=== PATIENT | female | born 1980 | race Caucasian/White ===

== ENCOUNTER 2020-06-27 09:02 | Outpatient (REF) | payer OTHER, SELFPAY ==
[2020-06-27 09:57] LABS: MANUAL DIFF FLAG NO
[2020-06-27 10:20] LABS: Basophils Absolute Auto 0.1 X10*3/uL (0.0-0.2); Basophils Percent Auto 1.1 % (0-2); Eosinophils Absolute Auto 0.2 X10*3/uL (0.0-0.4); Eosinophils Percent Auto 2.4 % (0-4); Hematocrit 39.2 % (37-47); Hemoglobin 12.8 g/dl (12.0-16.0); Imm Gran Abs Auto 0.01 X10*3/uL (0.00-0.03); Imm Gran Pct Auto 0.2 % (0.0-0.4); Lymphocytes Absolute Auto 3.3 X10*3/uL (1.2-4.9); Lymphocytes Percent Auto 53.7 % (20-40); Mean Corpuscular HGB Conc 32.7 g/dl (31.0-35.0); Mean Corpuscular Hemoglobin 29.5 pg (27.0-33.0); Mean Corpuscular Volume 90.3 fL (80-98); Mean Platelet Volume 10.7 fL (9.4-12.3); Monocytes Absolute Auto 0.4 X10*3/uL (0.1-1.2); Neutrophils Absolute Auto 2.3 X10*3/uL (2.0-8.3); Neutrophils Percent Auto 36.6 % (45-73); Platelet Count 269 X10*3/uL (160-400); Red Blood Count 4.34 X10*6/uL (4.20-5.50); Red Cell Distribution Width 12.5 % (11.0-16.0); White Blood Count 6.2 X10*3/uL (4.8-10.8)
[2020-06-27 11:02] LABS: Estimated Average Glucose 94 mg/dL; Hemoglobin A1c % 4.9 %
[2020-06-27 11:17] LABS: Alanine Aminotransferase 21 U/L (0-31); Albumin Level 4.5 g/dL (3.5-5.0); Alkaline Phosphatase 57 U/L (39-117); Anion Gap 12 (12-20); Aspartate Amino Transferase 29 U/L (5-31); Bilirubin Total 2.4 mg/dL (0.0-1.0); Blood Urea Nitrogen 11 mg/dL (9-16); C Reactive Protein 0.15 mg/dL (< or = 0.50); Calcium 9.2 mg/dL (8.4-10.2); Carbon Dioxide 26 mmol/L (22-29); Chloride 106 mmol/L (96-108); Cholesterol 237 mg/dL; Estimated Glomerular Filt Rate > 60; Glucose Random 98 mg/dL (60-115); HDL Cholesterol 51 mg/dL; Iron 127 mcg/dL (30-160); LDL Cholesterol Calculated 164 mg/dl; Percent Iron Saturation 36 % (15-50); Potassium 4.5 mmol/l (3.3-5.1); Sodium 139 mmol/L (135-145); Total Iron Binding Capacity 353 mcg/dL (228-428); Triglycerides 110 mg/dL; Unsaturated Iron Binding 226 ug/dL
[2020-06-27 11:40] LABS: Ferritin 51 ng/mL (10-250); TSH reflex Free T4 1.54 mIU/mL (0.32-4.0); Vitamin D 25-OH Total 28.1 ng/mL (>30)
[2020-06-29 05:16] LABS: Folate 14.4 ng/mL (> or = 4.0); Vitamin B12 416 pg/mL (200-900)
[2020-06-29 12:42] LABS: Insulin Level Total 9.6 uIU/mL
[2020-06-30 05:57] LABS: Zinc 75 mcg/dL (60-130)
[2020-06-30 16:01] LABS: Calcium (PTHI) 9.6 mg/dL (8.6-10.2); PTHI 42 pg/mL (14-64)
[2020-07-01 12:21] LABS: Vitamin B1 18 nmol/L (8-30)
[2020-07-01 18:07] LABS: Vitamin A 62 mcg/dL (38-98)
== END 2020-06-27 09:03 | disposition home or self-care (01) ==
LOC: HO.LAB 09:02
PROVIDERS: PCP Internal Medicine Endocrinology, Diabetes & Metabolism; Visit Provider Physician Assistant
DX: Z98.84 Bariatric surgery status (principal)
CPT/HCPCS: 36415; 80053; 80061; 82306; 82607; 82728; 82746; 83036; 83525; 83540; 83970; 84425; 84443; 84590; 84630; 85025; 86140

== ENCOUNTER 2020-07-24 09:24 | Outpatient (REF) | payer OTHER, MEDICAID, SELFPAY ==
[2020-07-24 10:50] LABS: Bilirubin Direct 0.5 mg/dL (0.0-0.5)
== END 2020-07-24 09:25 | disposition home or self-care (01) ==
LOC: HO.LAB 09:24
PROVIDERS: PCP Internal Medicine Endocrinology, Diabetes & Metabolism; Visit Provider Physician Assistant
DX: E80.6 Other disorders of bilirubin metabolism (principal)
CPT/HCPCS: 82248